=== PATIENT | male | born 1935 | race Caucasian/White ===

== ENCOUNTER 2017-11-13 10:19 | Inpatient (IN) | payer MEDICARE, BC ==
[2017-11-13] MEDS ORDERED: ONDANSETRON 4 MG INJ IV (11:30)
[2017-11-13] MEDS ORDERED: DIPHENHYDRAMINE 50 MG INJ IV (11:30)
[2017-11-13 12:27] LABS: WHITE BLOOD COUNT 15.7 10^3/ul (4.8-10.8)
[2017-11-13 12:27] LABS: ABNORMAL IP MESSAGE 1; HEMATOCRIT 27.4 % (42.0-52.0); HEMOGLOBIN 10.2 g/dl (14.0-18.0); MEAN CORPUSCULAR HEMOGLOBIN 31.6 pg (29.0-33.0); MEAN CORPUSCULAR HGB CONC 37.2 g/dl (32.0-37.0); MEAN CORPUSCULAR VOLUME 84.8 fl (82.0-101.0); MEAN PLATELET VOLUME 9.4 fl (7.4-10.4); PLATELET COUNT 164 10^3/UL (140-415); POSITIVE DIFF @See below; RED BLOOD COUNT 3.23 10^6/ul (4.70-6.10)
[2017-11-13 12:28] LABS: ADD MAN DIFF? YES
[2017-11-13] MEDS ORDERED: POTASSIUM CHLORIDE 30 MEQ in SOD CHLORIDE 0.9% 1,000 ML IV (12:30)
[2017-11-13 12:51] LABS: ANION GAP 8 (8-16); BLOOD UREA NITROGEN 15 mg/dl (7-20); CALCIUM 8.7 mg/dl (8.4-10.2); CARBON DIOXIDE 29 mmol/L (21-31); GLUCOSE 107 mg/dl (70-220); MAGNESIUM 1.5 mg/dl (1.7-2.5); PHOSPHORUS 3.5 mg/dl (2.5-4.9)
[2017-11-13 13:13] LABS: BAND NEUTROPHILS #M 0.9 10^3/ul (0.0-0.6); BAND NEUTROPHILS % (M) 6 % (0-4); LYMPHOCYTES #M 0.3 10^3/ul (0.8-2.9); LYMPHOCYTES % (M) 2 % (15-51); MONOCYTE #M 1.4 10^3/ul (0.3-0.9); MONOCYTES % (M) 9 % (0-11); PLATELET ESTIMATE NORMAL; PROMYELOCYTES #M 0.1 10^3/ul (0-0); PROMYELOCYTES % (M) 1 % (0-0); SEGMENTED NEUTROPHILS (M) % 82 % (39-77); SMUDGE%M 4 % (0-0)
[2017-11-13 13:15] LABS: CHLORIDE 75 mmol/L (97-110); SODIUM 107 mmol/L (135-144)
[2017-11-13 13:49] LABS: OSMOLALITY 227 mOsm/kg (280-295)
[2017-11-13 14:07] LABS: ADD UMIC NO; UR ASCORBIC ACID NEGATIVE (NEGATIVE); UR BILIRUBIN (Dip) NEGATIVE (NEGATIVE); UR BLOOD (Dip) NEGATIVE (NEGATIVE); UR CLARITY CLEAR (CLEAR); UR COLOR YELLOW (YELLOW); UR GLUCOSE (Dip) NEGATIVE (NEGATIVE); UR KETONES (Dip) TRACE mg/dL (NEGATIVE); UR LEUKOCYTE ESTERASE (Dip) NEGATIVE Leu/ul (NEGATIVE); UR NITRITE (Dip) NEGATIVE (NEGATIVE); UR SPECIFIC GRAVITY (Dip) 1.016 (1.003-1.030); UR TOTAL PROTEIN (Dip) NEGATIVE (NEGATIVE); UR UROBILINOGEN (Dip) NEGATIVE (NEGATIVE)
[2017-11-13 14:20] LABS: SODIUM,URINE RANDOM 64 mmol/L (30-90)
[2017-11-13 14:23] LABS: OSMOLALITY,URINE 559 mOsm/kg (250-1200)
[2017-11-13] MEDS: LEVALBUTEROL (NEB) 0.63 MG/3 ML AMP HHN (14:31)
[2017-11-13] MEDS: NACL 3% 500 ML IV (14:48)
[2017-11-13] MEDS: ONDANSETRON INJ 16 MG, DEXAMETHASONE 4 MG/ML 20 MG in DEXTROSE 5% 50 ML IV (16:11)
[2017-11-13] MEDS: CARBOPLATIN IV (16:40)
[2017-11-13] MEDS: SOD CHLORIDE 0.9% IV ×2 (16:40→21:37)
[2017-11-13 18:03] LABS: ANION GAP 10 (8-16); BLOOD UREA NITROGEN 15 mg/dl (7-20); CALCIUM 8.4 mg/dl (8.4-10.2); CARBON DIOXIDE 28 mmol/L (21-31); CHLORIDE 73 mmol/L (97-110); CREATININE 0.57 mg/dl (0.61-1.24); GLUCOSE 112 mg/dl (70-220); POTASSIUM 5.1 mmol/L (3.5-5.1)
[2017-11-13 18:04] LABS: URIC ACID 3.6 mg/dl (3.1-7.9)
[2017-11-13 18:23] LABS: SODIUM 106 mmol/L (135-144)
[2017-11-13] MEDS: TOLVAPTAN 15 MG TABLET PO (19:00)
[2017-11-13] MEDS: TAMSULOSIN (SR) 0.4 MG CAP PO (21:26)
[2017-11-13] MEDS: ETOPOSIDE IV (21:37)
[2017-11-14 00:42] LABS: SODIUM 110 mmol/L (135-144)
[2017-11-14] MEDS: MAGNESIUM SULFATE 3 GM in DEXTROSE 5% 100 ML IVPB (01:13)
[2017-11-14] MEDS: PANTOPRAZOLE (EC) 40 MG TAB PO (06:36)
[2017-11-14] MEDS: NACL 3% 500 ML IV ×2 (06:39→14:00)
[2017-11-14 11:42] LABS: ADD MAN DIFF? NO
[2017-11-14 11:48] LABS: WHITE BLOOD COUNT 15.8 10^3/ul (4.8-10.8)
[2017-11-14 11:48] LABS: ABNORMAL IP MESSAGE 1; BASOPHILS % 0.1 % (0.0-2.0); EOSINOPHILS % 0.1 % (0.0-7.0); HEMATOCRIT 28.3 % (42.0-52.0); HEMOGLOBIN 10.1 g/dl (14.0-18.0); LYMPHOCYTES # 0.5 10^3/ul (0.8-2.9); LYMPHOCYTES % 3.2 % (15.0-51.0); MEAN CORPUSCULAR HGB CONC 35.7 g/dl (32.0-37.0); MEAN CORPUSCULAR VOLUME 86.8 fl (82.0-101.0); MONOCYTE # 1.3 10^3/ul (0.3-0.9); MONOCYTES % 8.5 % (0.0-11.0); NEUTROPHIL # 13.7 10^3/ul (1.6-7.5); NEUTROPHILS % 86.5 % (39.0-77.0); PLATELET COUNT 191 10^3/UL (140-415); POSITIVE DIFF @See below; RED BLOOD COUNT 3.26 10^6/ul (4.70-6.10); RED CELL DISTRIBUTION WIDTH 12.3 % (11.5-14.5)
[2017-11-14 12:08] LABS: MAGNESIUM 2.3 mg/dl (1.7-2.5)
[2017-11-14 12:13] LABS: ALANINE AMINOTRANSFERASE 309 IU/L (13-69); ALKALINE PHOSPHATASE 314 IU/L (42-121); ANION GAP 10 (8-16); ASPARTATE AMINO TRANSFERASE 186 IU/L (15-46); BILIRUBIN,INDIRECT 0.4 mg/dl (0-1.1); BILIRUBIN,TOTAL 0.4 mg/dl (0.2-1.3); BLOOD UREA NITROGEN 16 mg/dl (7-20); CALCIUM 8.5 mg/dl (8.4-10.2); CARBON DIOXIDE 26 mmol/L (21-31); CHLORIDE 84 mmol/L (97-110); CREATININE 0.62 mg/dl (0.61-1.24); GLUCOSE 94 mg/dl (70-220); POTASSIUM 4.9 mmol/L (3.5-5.1); TOTAL PROTEIN 5.5 g/dl (6.1-8.1)
[2017-11-14] MEDS: L ACIDOPHIL/B LACTIS/B LONGUM CAPSULE PO (12:17)
[2017-11-14] MEDS: LOSARTAN 25 MG TAB PO (12:18)
[2017-11-14 12:20] LABS: SODIUM 115 mmol/L (135-144)
[2017-11-14] MEDS: TOLVAPTAN 15 MG TABLET PO (13:19)
[2017-11-14] MEDS ORDERED: VITAMIN A & D 5 GM OINT PACKET TOP (18:08)
[2017-11-14] MEDS: TAMSULOSIN (SR) 0.4 MG CAP PO (20:47)
[2017-11-14] MEDS: ONDANSETRON INJ 16 MG, DEXAMETHASONE 4 MG/ML 20 MG in DEXTROSE 5% 50 ML IV (22:46)
[2017-11-14] MEDS: ETOPOSIDE IV (23:16)
[2017-11-14] MEDS: SOD CHLORIDE 0.9% IV (23:16)
[2017-11-15 05:17] LABS: ABNORMAL IP MESSAGE 1; HEMOGLOBIN 11.6 g/dl (14.0-18.0); MEAN CORPUSCULAR HEMOGLOBIN 31.4 pg (29.0-33.0); MEAN CORPUSCULAR HGB CONC 35.2 g/dl (32.0-37.0); MEAN CORPUSCULAR VOLUME 89.2 fl (82.0-101.0); MEAN PLATELET VOLUME 9.8 fl (7.4-10.4); PLATELET COUNT 226 10^3/UL (140-415); POSITIVE DIFF @See below; RED CELL DISTRIBUTION WIDTH 12.4 % (11.5-14.5)
[2017-11-15 05:17] LABS: WHITE BLOOD COUNT 16.3 10^3/ul (4.8-10.8)
[2017-11-15 05:35] LABS: ADD MAN DIFF? YES; ANION GAP 14 (8-16); BLOOD UREA NITROGEN 23 mg/dl (7-20); CALCIUM 9.5 mg/dl (8.4-10.2); CARBON DIOXIDE 25 mmol/L (21-31); CHLORIDE 94 mmol/L (97-110); CREATININE 0.98 mg/dl (0.61-1.24); GLUCOSE 156 mg/dl (70-220); MAGNESIUM 2.3 mg/dl (1.7-2.5); PHOSPHORUS 4.4 mg/dl (2.5-4.9); POTASSIUM 5.2 mmol/L (3.5-5.1); SODIUM 128 mmol/L (135-144)
[2017-11-15] MEDS: PANTOPRAZOLE (EC) 40 MG TAB PO (06:31)
[2017-11-15] MEDS: L ACIDOPHIL/B LACTIS/B LONGUM CAPSULE PO (09:21)
[2017-11-15] MEDS: LOSARTAN 25 MG TAB PO (09:23)
[2017-11-15] MEDS: FUROSEMIDE 20 MG INJ IV (09:23)
[2017-11-15] MEDS: NACL 3% 500 ML IV (12:36)
[2017-11-15 12:52] LABS: ANISOCYTOSIS 1+ (0-0); BAND NEUTROPHILS #M 0.6 10^3/ul (0.0-0.6); BAND NEUTROPHILS % (M) 4 % (0-4); BURR CELLS 2+ (0-0); LYMPHOCYTES #M 0.1 10^3/ul (0.8-2.9); LYMPHOCYTES % (M) 1 % (15-51); MONOCYTE #M 0.1 10^3/ul (0.3-0.9); MONOCYTES % (M) 1 % (0-11); PLATELET ESTIMATE NORMAL; POIKILOCYTOSIS 1+ (0-0); SEG NEUT #M 15.4 10^3/ul (1.6-7.5); SEGMENTED NEUTROPHILS (M) % 94 % (39-77)
[2017-11-15] MEDS ORDERED: BALSAM PERU/CASTOR OIL 60 GM TUBE TOP (13:00)
[2017-11-15] MEDS: BALSAM PERU/CASTOR OIL 60 GM TUBE TOP (14:28)
[2017-11-15] MEDS: TAMSULOSIN (SR) 0.4 MG CAP PO (21:35)
[2017-11-15] MEDS: ONDANSETRON INJ 16 MG, DEXAMETHASONE 4 MG/ML 20 MG in DEXTROSE 5% 50 ML IV (22:13)
[2017-11-15] MEDS: SOD CHLORIDE 0.9% IV (22:39)
[2017-11-15] MEDS: ETOPOSIDE IV (22:39)
[2017-11-16 05:35] LABS: ADD MAN DIFF? NO
[2017-11-16 05:38] LABS: WHITE BLOOD COUNT 12.3 10^3/ul (4.8-10.8)
[2017-11-16 05:38] LABS: ABNORMAL IP MESSAGE 1; BASOPHILS % 0.1 % (0.0-2.0); HEMOGLOBIN 10.7 g/dl (14.0-18.0); LYMPHOCYTES # 0.2 10^3/ul (0.8-2.9); LYMPHOCYTES % 1.5 % (15.0-51.0); MEAN CORPUSCULAR HEMOGLOBIN 31.1 pg (29.0-33.0); MEAN CORPUSCULAR HGB CONC 34.5 g/dl (32.0-37.0); MEAN CORPUSCULAR VOLUME 90.1 fl (82.0-101.0); MEAN PLATELET VOLUME 9.6 fl (7.4-10.4); MONOCYTE # 0.1 10^3/ul (0.3-0.9); MONOCYTES % 0.7 % (0.0-11.0); NEUTROPHIL # 11.9 10^3/ul (1.6-7.5); NEUTROPHILS % 96.8 % (39.0-77.0); PLATELET COUNT 185 10^3/UL (140-415); POSITIVE DIFF @See below; RED BLOOD COUNT 3.44 10^6/ul (4.70-6.10); RED CELL DISTRIBUTION WIDTH 12.9 % (11.5-14.5)
[2017-11-16] MEDS: PANTOPRAZOLE (EC) 40 MG TAB PO (06:00)
[2017-11-16 06:04] LABS: ANION GAP 15 (8-16); BLOOD UREA NITROGEN 30 mg/dl (7-20); CARBON DIOXIDE 28 mmol/L (21-31); CHLORIDE 97 mmol/L (97-110); CREATININE 0.77 mg/dl (0.61-1.24); GLUCOSE 136 mg/dl (70-220); MAGNESIUM 2.2 mg/dl (1.7-2.5); POTASSIUM 5.2 mmol/L (3.5-5.1); SODIUM 135 mmol/L (135-144)
[2017-11-16] MEDS: SOD CHLORIDE 0.9% 100 ML (09:07)
[2017-11-16] MEDS: IODIXANOL LOCM 100 ML BTL (09:08)
[2017-11-16] MEDS: BALSAM PERU/CASTOR OIL 60 GM TUBE TOP (09:35)
[2017-11-16] MEDS: NA POLYST SULFON 15 GM/60 ML BTL PO ×3 (09:36→17:17)
[2017-11-16] MEDS: L ACIDOPHIL/B LACTIS/B LONGUM CAPSULE PO (09:36)
[2017-11-16] MEDS: AMLODIPINE 2.5 MG TAB PO ×2 (09:37→21:10)
[2017-11-16] MEDS: SOD CHLORIDE 0.9% 1,000 ML IV (09:54)
[2017-11-16 16:33] LABS: POTASSIUM 5.3 mmol/L (3.5-5.1)
[2017-11-16] MEDS: TAMSULOSIN (SR) 0.4 MG CAP PO (21:10)
[2017-11-16] MEDS: DEXAMETHASONE 4 MG/ML 1 ML INJ IV (22:06)
[2017-11-17] MEDS: SOD CHLORIDE 0.9% 1,000 ML IV ×2 (02:51→22:17)
[2017-11-17 05:28] LABS: ADD MAN DIFF? NO
[2017-11-17 05:35] LABS: ABNORMAL IP MESSAGE 1; BASOPHILS % 0.1 % (0.0-2.0); EOSINOPHILS % 0.1 % (0.0-7.0); HEMATOCRIT 30.4 % (42.0-52.0); HEMOGLOBIN 10.5 g/dl (14.0-18.0); LYMPHOCYTES # 0.3 10^3/ul (0.8-2.9); LYMPHOCYTES % 2.8 % (15.0-51.0); MEAN CORPUSCULAR HEMOGLOBIN 31.7 pg (29.0-33.0); MEAN CORPUSCULAR HGB CONC 34.5 g/dl (32.0-37.0); MEAN CORPUSCULAR VOLUME 91.8 fl (82.0-101.0); MEAN PLATELET VOLUME 9.5 fl (7.4-10.4); MONOCYTE # 0.1 10^3/ul (0.3-0.9); MONOCYTES % 0.6 % (0.0-11.0); NEUTROPHIL # 11.1 10^3/ul (1.6-7.5); NEUTROPHILS % 95.6 % (39.0-77.0); PLATELET COUNT 151 10^3/UL (140-415); POSITIVE DIFF @See below; RED BLOOD COUNT 3.31 10^6/ul (4.70-6.10); RED CELL DISTRIBUTION WIDTH 12.9 % (11.5-14.5)
[2017-11-17 05:35] LABS: WHITE BLOOD COUNT 11.6 10^3/ul (4.8-10.8)
[2017-11-17 05:50] LABS: ANION GAP 13 (8-16); BLOOD UREA NITROGEN 30 mg/dl (7-20); CALCIUM 8.6 mg/dl (8.4-10.2); CARBON DIOXIDE 30 mmol/L (21-31); CHLORIDE 96 mmol/L (97-110); CREATININE 0.64 mg/dl (0.61-1.24); GLUCOSE 123 mg/dl (70-220); POTASSIUM 4.6 mmol/L (3.5-5.1); SODIUM 134 mmol/L (135-144)
[2017-11-17] MEDS: PANTOPRAZOLE (EC) 40 MG TAB PO (06:17)
[2017-11-17] MEDS: DEXAMETHASONE 4 MG/ML 1 ML INJ IV ×3 (06:18→21:48)
[2017-11-17] MEDS: LEVALBUTEROL (NEB) 0.63 MG/3 ML AMP HHN ×2 (09:17→15:03)
[2017-11-17] MEDS: AMLODIPINE 2.5 MG TAB PO ×2 (10:15→21:48)
[2017-11-17] MEDS: BALSAM PERU/CASTOR OIL 60 GM TUBE TOP (10:15)
[2017-11-17] MEDS: L ACIDOPHIL/B LACTIS/B LONGUM CAPSULE PO (10:15)
[2017-11-17] MEDS: DOCUSATE SODIUM 250 MG CAP PO (16:20)
[2017-11-17] MEDS: TAMSULOSIN (SR) 0.4 MG CAP PO (21:48)
[2017-11-17] MEDS: ACETAMINOPHEN 325 MG TAB PO (22:10)
[2017-11-18 05:19] LABS: ADD MAN DIFF? NO
[2017-11-18 05:20] LABS: BASOPHILS % 0.1 % (0.0-2.0); EOSINOPHILS % 0.2 % (0.0-7.0); HEMATOCRIT 35.8 % (42.0-52.0); HEMOGLOBIN 12.1 g/dl (14.0-18.0); LYMPHOCYTES # 0.9 10^3/ul (0.8-2.9); LYMPHOCYTES % 5.6 % (15.0-51.0); MEAN CORPUSCULAR HGB CONC 33.8 g/dl (32.0-37.0); MEAN CORPUSCULAR VOLUME 91.8 fl (82.0-101.0); MEAN PLATELET VOLUME 10.5 fl (7.4-10.4); MONOCYTE # 0.1 10^3/ul (0.3-0.9); MONOCYTES % 0.6 % (0.0-11.0); NEUTROPHILS % 92.7 % (39.0-77.0); PLATELET COUNT 166 10^3/UL (140-415); RED CELL DISTRIBUTION WIDTH 12.7 % (11.5-14.5)
[2017-11-18 05:20] LABS: WHITE BLOOD COUNT 15.1 10^3/ul (4.8-10.8)
[2017-11-18 05:47] LABS: ANION GAP 5 (8-16); BLOOD UREA NITROGEN 29 mg/dl (7-20); CALCIUM 9.1 mg/dl (8.4-10.2); CARBON DIOXIDE 34 mmol/L (21-31); CHLORIDE 99 mmol/L (97-110); CREATININE 0.61 mg/dl (0.61-1.24); GLUCOSE 115 mg/dl (70-220); MAGNESIUM 2.1 mg/dl (1.7-2.5); POTASSIUM 4.4 mmol/L (3.5-5.1); SODIUM 134 mmol/L (135-144)
[2017-11-18] MEDS: PANTOPRAZOLE (EC) 40 MG TAB PO (06:37)
[2017-11-18] MEDS: DEXAMETHASONE 4 MG/ML 1 ML INJ IV ×2 (06:37→14:24)
[2017-11-18] MEDS: DOCUSATE SODIUM 250 MG CAP PO (08:56)
[2017-11-18] MEDS: L ACIDOPHIL/B LACTIS/B LONGUM CAPSULE PO (08:56)
[2017-11-18] MEDS: AMLODIPINE 2.5 MG TAB PO (08:57)
[2017-11-18] MEDS: BALSAM PERU/CASTOR OIL 60 GM TUBE TOP (09:00)
[2017-11-18] MEDS: MAGNESIUM HYDROXIDE 30ML CUP PO (10:29)
[2017-11-18] MEDS: TIOTROPIUM 18 MCG CAPSULE INHA DEV INH (17:00)
[2017-11-18] MEDS: HEPARIN (100 UNITS/ML) 5 ML SYG CATHETER (17:15)
[2017-11-18] MEDS: MAGNESIUM CITRATE 300 ML BTL PO (17:57)
[2017-11-18] MEDS ORDERED: GUAIFENESIN LA 600 MG TABSR PO (21:00)
== END 2017-11-18 20:15 | DRG 846 ==
LOC: MS1 10:19
PROC: 3E04305 Introduction of Other Antineoplastic into Central Vein, Percutaneous Approach (ICD-10-PCS; principal; 2017-11-13)
DX: Z51.11 Encounter for antineoplastic chemotherapy (principal); G92 Toxic encephalopathy; G93.6 Cerebral edema; C34.90 Malignant neoplasm of unspecified part of unspecified bronchus or lung; C78.7 Secondary malignant neoplasm of liver and intrahepatic bile duct; C79.51 Secondary malignant neoplasm of bone; C79.31 Secondary malignant neoplasm of brain; E22.2 Syndrome of inappropriate secretion of antidiuretic hormone; G91.9 Hydrocephalus, unspecified; I10 Essential (primary) hypertension; J44.9 Chronic obstructive pulmonary disease, unspecified; Z95.0 Presence of cardiac pacemaker; Z85.72 Personal history of non-Hodgkin lymphomas; Z98.2 Presence of cerebrospinal fluid drainage device; Z87.891 Personal history of nicotine dependence; D64.89 Other specified anemias; G47.30 Sleep apnea, unspecified; E78.5 Hyperlipidemia, unspecified; E83.42 Hypomagnesemia; K21.9 Gastro-esophageal reflux disease without esophagitis; N40.0 Benign prostatic hyperplasia without lower urinary tract symptoms; R13.10 Dysphagia, unspecified; K59.00 Constipation, unspecified
CPT/HCPCS: 70470; 71045; 80048; 80053; 81003; 82533; 83735; 83930; 83935; 84100; 84132; 84295; 84300; 84443; 84560; 85025; 92526; 92610; 94640; 94664; 97110; 97116; 97163; 97530; J9181

== ENCOUNTER 2017-11-24 08:41 | Inpatient (IN) | payer MEDICARE, BC ==
[2017-11-24] MEDS: SODIUM CHLORIDE 0.9% 1L BAG IV* ×2 (09:13→10:26)
[2017-11-24] MEDS: CEFEPIME 2GM/50 ML (PMX) 50 ML IVPB ×2 (09:14→21:40)
[2017-11-24 09:20] LABS: WHITE BLOOD COUNT 0.1 10^3/ul (4.8-10.8)
[2017-11-24 09:20] LABS: ABNORMAL IP MESSAGE 1; HEMATOCRIT 33.1 % (42.0-52.0); HEMOGLOBIN 10.9 g/dl (14.0-18.0); MEAN CORPUSCULAR HGB CONC 32.9 g/dl (32.0-37.0); MEAN PLATELET VOLUME 10.9 fl (7.4-10.4); POSITIVE DIFF @See below; RED BLOOD COUNT 3.52 10^6/ul (4.70-6.10); RED CELL DISTRIBUTION WIDTH 12.9 % (11.5-14.5)
[2017-11-24] MEDS: ALBUTEROL 0.083% (NEB) 2.5 MG/3 ML AMP NEB (09:26)
[2017-11-24] MEDS: IPRATROPIUM (NEB) 0.5 MG/2.5 ML AMP NEB (09:26)
[2017-11-24 09:28] LABS: ADD MAN DIFF? YES; PLATELET COUNT 27 10^3/UL (140-415)
[2017-11-24 09:31] LABS: LACTIC ACID 1.6 mmol/L (0.5-2.0)
[2017-11-24 09:40] LABS: ALANINE AMINOTRANSFERASE 88 IU/L (13-69); ALBUMIN 3.4 g/dl (3.3-4.9); ALBUMIN/GLOBULIN RATIO 1.13; ALKALINE PHOSPHATASE 203 IU/L (42-121); AMYLASE 55 U/L (11-123); ANION GAP 15 (8-16); ASPARTATE AMINO TRANSFERASE 30 IU/L (15-46); BILIRUBIN,INDIRECT 1.2 mg/dl (0-1.1); BILIRUBIN,TOTAL 1.5 mg/dl (0.2-1.3); BLOOD UREA NITROGEN 58 mg/dl (7-20); CALCIUM 9.3 mg/dl (8.4-10.2); CARBON DIOXIDE 32 mmol/L (21-31); CHLORIDE 107 mmol/L (97-110); CREATININE 1.14 mg/dl (0.61-1.24); GLUCOSE 120 mg/dl (70-220); LIPASE 25 U/L (23-300); POTASSIUM 4.1 mmol/L (3.5-5.1); SODIUM 150 mmol/L (135-144); TOTAL PROTEIN 6.4 g/dl (6.1-8.1)
[2017-11-24 09:50] LABS: TROPONIN-I 0.111 ng/ml (0.00-0.12)
[2017-11-24] MEDS: VANCOMYCIN 1 GM (PMX) 250 ML IVPB (09:51)
[2017-11-24 09:55] LABS: B-TYPE NATRIURETIC PEPTIDE 7910 PG/ML (0-450)
[2017-11-24 10:27] LABS: ADD UMIC YES; UR COLOR AMBER (YELLOW)
[2017-11-24 10:28] LABS: UR CLARITY SLIGHTLY CLOUDY (CLEAR)
[2017-11-24 10:29] LABS: UR BILIRUBIN (Dip) 2+ mg/dL (NEGATIVE); UR BLOOD (Dip) 3+ mg/dL (NEGATIVE); UR GLUCOSE (Dip) NEGATIVE (NEGATIVE); UR KETONES (Dip) TRACE mg/dL (NEGATIVE); UR NITRITE (Dip) NEGATIVE (NEGATIVE); UR TOTAL PROTEIN (Dip) 2+ mg/dl (NEGATIVE); UR UROBILINOGEN (Dip) 4.0 E.U./dL mg/dL (NEGATIVE)
[2017-11-24 10:30] LABS: UR LEUKOCYTE ESTERASE (Dip) TRACE Leu/ul (NEGATIVE)
[2017-11-24 10:34] LABS: UR BACTERIA FEW /HPF (NONE SEEN); UR GRANULAR CAST FEW /HPF (NONE SEEN); UR MUCUS FEW /HPF (NONE SEEN); UR SQUAMOUS EPITHELIAL CELL FEW /HPF (FEW)
[2017-11-24 10:35] LABS: URINE RBCS 25-50 /HPF (0)
[2017-11-24 10:56] LABS: EOSINOPHILS % (M) 1 % (0-7); ERYTHROBLAST% (NRBC) (M) 1 % (0-0); GIANT THROMBO% (M) 5 % (0-0); LYMPHOCYTES % (M) 87 % (15-51); MONOCYTES % (M) 6 % (0-11); PLATELET ESTIMATE SIG DECREASED; PLATELET MORPHOLOGY COMMENT @See below; POIKILOCYTOSIS 1+ (0-0); POLYCHROMASIA 3+ (0-0); REACTIVE LYMPHOCYTES% (M) 4 % (0-0); SEGMENTED NEUTROPHILS (M) % 3 % (39-77); SMUDGE%M 11 % (0-0)
[2017-11-24 11:52] LABS: LACTIC ACID 1.7 mmol/L (0.5-2.0)
[2017-11-24] MEDS ORDERED: ACETAMINOPHEN 325 MG TAB PO (14:00)
[2017-11-24] MEDS ORDERED: LEVALBUTEROL (NEB) 0.63 MG/3 ML AMP HHN (14:00)
[2017-11-24] MEDS ORDERED: VANCOMYCIN IV PER PHARMACY XX (14:00)
[2017-11-24] MEDS ORDERED: hydrALAzine 20 MG INJ IV (14:00)
[2017-11-24] MEDS: DEXTROSE 5% 1,000 ML IV (15:03)
[2017-11-24] MEDS: FUROSEMIDE 20 MG INJ IV (15:03)
[2017-11-24 15:15] LABS: LACTIC ACID 2.2 mmol/L (0.5-2.0)
[2017-11-24] MEDS: VANCOMYCIN 500MG/NS (PMX) 100 ML IVPB (15:56)
[2017-11-24] MEDS: MAGNESIUM SULFATE 2 GM/50 ML 50 ML IVPB (17:10)
[2017-11-24] MEDS: FILGRASTIM 480 MCG INJ SC (17:38)
[2017-11-24] MEDS ORDERED: GUAIFENESIN LA 600 MG TABSR PO (21:00)
[2017-11-24] MEDS ORDERED: DEXAMETHASONE 2 MG TAB PO (21:00)
[2017-11-24] MEDS: AMLODIPINE 2.5 MG TAB PO (21:40)
[2017-11-25] MEDS: DEXAMETHASONE 4 MG/ML 1 ML INJ IV ×2 (00:34)
[2017-11-25] MEDS ORDERED: PANTOPRAZOLE (EC) 40 MG TAB PO (06:00)
[2017-11-25] MEDS ORDERED: VANCOMYCIN 1.25 GM in SOD CHLORIDE 0.9% 250 ML IVPB (10:00)
[2017-11-25] MEDS ORDERED: TAMSULOSIN (SR) 0.4 MG CAP PO (21:00)
== END 2017-11-25 03:15 | disposition expired | DRG 189 ==
LOC: E/R 08:41 → TEL 08:55
DX: J96.90 Respiratory failure, unspecified, unspecified whether with hypoxia or hypercapnia (principal); C34.90 Malignant neoplasm of unspecified part of unspecified bronchus or lung; C79.9 Secondary malignant neoplasm of unspecified site; E87.0 Hyperosmolality and hypernatremia; Z87.891 Personal history of nicotine dependence; D70.9 Neutropenia, unspecified; K21.9 Gastro-esophageal reflux disease without esophagitis; N40.0 Benign prostatic hyperplasia without lower urinary tract symptoms; E78.5 Hyperlipidemia, unspecified; R13.10 Dysphagia, unspecified; Z66 Do not resuscitate; D64.9 Anemia, unspecified; G47.30 Sleep apnea, unspecified
CPT/HCPCS: 71045; 80053; 81001; 82150; 83605; 83690; 83880; 84484; 85025; 86850; 86900; 86901; 87040; 87081; 87086; 93005; 94660; 94664; 96374; 96375; 99291-25